=== PATIENT | female | born 1980 | race Caucasian/White ===

== ENCOUNTER → 2016-06-22 | Day surgery (SDC) | payer MEDICARE, OTHER ==
[~2016-06-22] VITALS: Ht 157.5 cm; Wt 105.7 kg
[~2016-06-22] MED LIST: AMPICILLIN SOD/SULBACTAM SOD 3 GM in D5W MINI-BAG PLUS 100 ML IV ONE; CARB20TA PO; CLON0.5T PO; COLA100C3 PO; CYAN1000VL IM; CYCL10TA PO; DRIS50002 PO; FOLI1TAB2 PO; GABA-282 PO; GLYCOPYRROLATE INJ 0.2 MG/ML 2 ML VIAL As Ordered ONE; LIDOCAINE 2% W/ EPINEPHRINE 1.7 ML DENTAL INJ As Ordered ONE; LIPI10TA PO; LR 1,000 ML IV SCH; NEOSTIGMINE 1MG/ML 5 ML SYRINGE (J2710) As Ordered ONE; ONDANSETRON 4MG/2ML VIAL (J2405) As Ordered ONE; ONDANSETRON 4MG/2ML VIAL (J2405) IV PRN; OXYC1TAB16 PO; PAME10CA PO; PANT40TA2 PO; PERCOCET 5MG/325MG TAB As Ordered ONE; PHENYLephrine HCL 500 MCG/5 ML (100MCG/ML) SYRINGE (J2370) As Ordered ONE; PROPOFOL 200 MG/20 ML VIAL As Ordered ONE; ROCURONIUM BROMIDE 50 MG/5 ML VIAL As Ordered ONE; SUMA50TA2 PO; THROMBIN SOLN 5,000 UNITS VIAL As Ordered ONE; VENL75TA2 PO; ZOFR8TAB PO; ZYRT10TA2 PO; [UNRECOGNIZED DRUG - CODE] PO; dexameTHASONE 4 MG/ML 1ML VIAL (J1100) IV ONE; fentaNYL 100 MCG/2 ML INJECTION (J3010) As Ordered ONE; fentaNYL 100 MCG/2 ML INJECTION (J3010) IV PRN
[2016-06-22] MEDS: PERCOCET 5MG/325MG TAB PO PRN ×2 (13:55→14:23)
[2016-06-22 14:50] VITALS: BP 143/93
--- NOTE | 2016-06-22 17:30 | RO ---
DATE OF PROCEDURE: 06/22/2016 PREOPERATIVE DIAGNOSIS: 1. Morbid obesity, severe anxiety, trigeminal neuralgia, chronic obstructive pulmonary disease (COPD), obstructive sleep apnea. 2. Hopeless teeth including teeth number 1, 2, 3, 4, 6, 7, 8, 9, 10, 11, 12, 14, 15, 16, 19, 20, 30 and 32. POSTOPERATIVE DIAGNOSIS: Status post the above. PROCEDURE PERFORMED: Extraction of all of the aforementioned teeth. SURGEON: Glenroy Cordova DMD, MD LEAD SOFTWARE DEVELOPER: ANESTHESIA: General anesthesia via nasal ray. SPECIMEN: None. INDICATIONS FOR SURGERY: Mrs. Luna is a pleasant 36-year-old female who was referred to my office back last December for evaluation for extraction of the aforementioned teeth. She reported a history of severe dental anxiety as well as the aforementioned comorbidities. A full clinical and radiographic examination was performed which revealed multiple hopeless teeth as aforementioned. A discussion was made with the patient regarding having the procedure done in an office versus an operating room. The patient and myself felt that she would be better suited for an operating room setting. Therefore, she was prepared to have this done at [facility] operating room. An informed consent and a complete history and physical was performed and is in the patient's chart. DESCRIPTION OF PROCEDURE: On June 22, 2016, the patient presented to [facility] where she was met by the anesthesiologist and myself. Any last minute questions were addressed. At that point, the informed consent and the physical were updated. At that point, the patient was then taken back to the operating room. She was laid supine on the operating room table. Ulnar nerve protectors were placed. Noninvasive cardiac monitors were applied. At that point, the patient underwent general anesthesia and was intubated with a nasal ray, which was then secured to the patient's forehead. At this point, the patient was then prepped and draped in the usual sterile fashion. A time-out procedure was performed to identify the patient, the procedure and any other precautions. Preoperative antibiotics in the form of 3 grams of Unasyn as well as 8 mg of Decadron were given preoperatively in the IV within 30 minutes of incision. At this point, a moist throat pack was then inserted in the patient's oropharynx, and the administration of 10 carpules of 2% lidocaine with 1:100,000 epinephrine were given as blocks and local infiltration. At this point, a 15 blade was then used to make an incision across teeth number 1, 2, 3, 4, 6, 7, 8, 9, 10, 11, 12, 14, 15, 16, 19, 20, 30 and 32. The incision was made in the sulcus in a continuous fashion. The facial cortices of each tooth was exposed. Some buccal bone was removed from each indicated tooth area, and at that point, the teeth were then luxated and delivered with ease without any issues. All the sockets were curetted and irrigated, and a bone file was then used to smooth any facial and crystal bone down to smooth finish. At this point, all the socket, as I mentioned, were all irrigated one more time, and the flaps were then all closed with interrupted and continuous 3-0 chromic sutures across all the maxillary arch and in the lower left and lower right mandibular arches. At this point, once all the teeth were removed, the oral cavity was irrigated and suctioned, a throat pack was then removed and the patient was then extubated and taken back to the post-anesthesia care unit (PACU) without any incident. Estimated blood loss about 20 mL. DRAINS: There were no drains placed. COMPLICATIONS: None.
== END | disposition home or self-care (01) ==
LOC: M SDC 07:18
PROVIDERS: ATTEND Dentist
DX: K02.9 Dental caries, unspecified (principal); J44.9 Chronic obstructive pulmonary disease, unspecified; I10 Essential (primary) hypertension; E78.5 Hyperlipidemia, unspecified; K21.9 Gastro-esophageal reflux disease without esophagitis; F41.9 Anxiety disorder, unspecified; F32.9 Major depressive disorder, single episode, unspecified; G50.0 Trigeminal neuralgia; G47.33 Obstructive sleep apnea (adult) (pediatric); M79.7 Fibromyalgia; Z87.891 Personal history of nicotine dependence; Z79.899 Other long term (current) drug therapy
CPT/HCPCS: 41899; 88300; J1100; J2250; J2370; J2405; J2710; J3010